=== PATIENT | female | born 1955 | race Hispanic/Latino ===

== ENCOUNTER 2021-01-15 19:52 | Observation (INO) | payer MEDICARE ==
[~2021-01-15] VITALS: Ht 157.5 cm; Wt 74.8 kg
[2021-01-15] MEDS ORDERED: METOCLOPRAMIDE HCL 10 MG/2ML VIAL IV ONE (20:45)
[2021-01-15] MEDS ORDERED: MAGNESIUM SULFATE 2GM/50ML 50 ML IV ONE (20:45)
[2021-01-15] MEDS ORDERED: ASPIRIN 81 MG CHEW TAB PO ONE (20:45)
[2021-01-15] MEDS ORDERED: DIPHENHYDRAMINE HCL INJ 50 MG/ML VIAL IV ONE (20:45)
[2021-01-15] MEDS ORDERED: SODIUM CHLORIDE 0.9% 1000ML 1,000 ML IV STA (20:45)
[2021-01-15 20:56] LABS: BASOPHILS % 0.4 % (0.0-1.0); EOSINOPHILS % 0.4 % (0.0-6.0); HEMATOCRIT 38.2 % (34.2-44.1); HEMOGLOBIN 13.1 g/dL (12.0-16.0); LYMPHOCYTES # (AUTO) 1.4 (1.0-3.2); LYMPHOCYTES % 15.4 % (18.0-39.1); MEAN CORPUSCULAR HEMOGLOBIN 28.6 pg (28-32); MEAN CORPUSCULAR HGB CONC 34.3 g/dL (31-35); MEAN CORPUSCULAR VOLUME 83.4 fL (81-99); MONOCYTES # (AUTO) 0.5 (0.2-0.8); MONOCYTES % 5.6 % (4.4-11.3); NEUTROPHILS # (AUTO) 7.2 (2.1-6.9); NEUTROPHILS % 77.9 % (38.7-80.0); PLATELET COUNT 245 x10e3/uL (140-360); RED BLOOD COUNT 4.58 x10e6/uL (3.6-5.1); RED CELL DISTRIBUTION WIDTH 11.9 % (11.7-14.4)
[2021-01-15 21:12] LABS: ALANINE AMINOTRANSFERASE 29 IU/L (0-55); ALBUMIN 4.5 g/dL (3.5-5.0); ALBUMIN/GLOBULIN RATIO 1.5 (0.8-2.0); ALKALINE PHOSPHATASE 62 IU/L (40-150); ANION GAP 17.1 mmol/L (8-16); BLOOD UREA NITROGEN 10 mg/dL (7-26); BUN/CREATININE RATIO 13 (6-25); CALCIUM 9.1 mg/dL (8.4-10.2); CARBON DIOXIDE 24 mmol/L (22-29); CHLORIDE 95 mmol/L (98-107); CREATINE KINASE 69 IU/L (29-168); CREATININE, SERUM 0.79 mg/dL (0.57-1.11); EST GLOMERULAR FILTRATION RATE > 60 ML/MIN (60-); GLUCOSE 220 mg/dL (74-118); POTASSIUM 4.1 mmol/L (3.5-5.1); SODIUM 132 mmol/L (136-145)
[2021-01-16] MEDS ORDERED: SODIUM CHLORIDE 0.9% 1000ML 1,000 ML IV SCH (00:15)
[2021-01-16] MEDS ORDERED: ASPIRIN 81 MG CHEW TAB PO ONE (00:15)
[2021-01-16] MEDS ORDERED: DIPHENHYDRAMINE HCL INJ 50 MG/ML VIAL ONE (00:27)
[2021-01-16] MEDS ORDERED: HYDRALAZINE HCL 20 MG/ML VIAL ONE (01:45)
[2021-01-16] MEDS: HYDRALAZINE HCL 20 MG/ML VIAL IV PRN ×3 (06:13→21:59)
[2021-01-16] MEDS ORDERED: MECLIZINE HCL 12.5 MG TAB PO SCH (15:30)
[2021-01-16 20:47] LABS: CREATINE KINASE MB 0.8 ng/mL (0-5.0)
[2021-01-16] MEDS ORDERED: ACETAMINOPHEN 325 MG TAB PO ONE (22:15)
[2021-01-16] MEDS ORDERED: CLONIDINE HCL 0.1 MG TAB PO PRN (22:45)
[2021-01-16] MEDS ORDERED: METOPROLOL TARTRATE INJ 1 MG/ML VIAL IV ONE (23:30)
[2021-01-17 00:04] VITALS: BP 147/66
[2021-01-17 00:30] VITALS: BP 147/66
[2021-01-17] MEDS ORDERED: GLIPIZIDE-METF1 EAC2 PO (01:03)
[2021-01-17] MEDS ORDERED: PRAVACHOL40 MG PO (01:03)
[2021-01-17] MEDS ORDERED: LANTUS 3ML100 UNITS/ SC (01:03)
[2021-01-17] MEDS ORDERED: LISINOPRIL40 MG PO (01:03)
[2021-01-17] MEDS ORDERED: GABAPENTIN100 MG PO (01:03)
[2021-01-17] MEDS ORDERED: LEVOTHYROXINE75 MCG PO (01:03)
[2021-01-17] MEDS ORDERED: PANTOPRAZOLE SO20 MG PO (01:03)
[2021-01-17] MEDS: LOSARTAN POTASSIUM 25 MG TAB PO SCH ×2 (01:42→09:00)
[2021-01-17] MEDS: METOPROLOL TARTRATE 50 MG TAB PO SCH ×2 (01:43→09:00)
[2021-01-17 04:00] VITALS: BP 118/66
[2021-01-17 06:51] LABS: BASOPHILS % 0.5 % (0.0-1.0); EOSINOPHILS # (AUTO) 0.1 (0.0-0.4); EOSINOPHILS % 1.5 % (0.0-6.0); HEMATOCRIT 35.7 % (34.2-44.1); HEMOGLOBIN 12.2 g/dL (12.0-16.0); LYMPHOCYTES # (AUTO) 2.2 (1.0-3.2); LYMPHOCYTES % 29.1 % (18.0-39.1); MEAN CORPUSCULAR HEMOGLOBIN 28.8 pg (28-32); MEAN CORPUSCULAR HGB CONC 34.2 g/dL (31-35); MEAN CORPUSCULAR VOLUME 84.4 fL (81-99); MONOCYTES # (AUTO) 0.6 (0.2-0.8); MONOCYTES % 8.1 % (4.4-11.3); NEUTROPHILS # (AUTO) 4.5 (2.1-6.9); NEUTROPHILS % 60.5 % (38.7-80.0); PLATELET COUNT 231 x10e3/uL (140-360); RED BLOOD COUNT 4.23 x10e6/uL (3.6-5.1); RED CELL DISTRIBUTION WIDTH 12.2 % (11.7-14.4)
[2021-01-17 07:17] LABS: ALANINE AMINOTRANSFERASE 21 IU/L (0-55); ALBUMIN 3.7 g/dL (3.5-5.0); ALBUMIN/GLOBULIN RATIO 1.4 (0.8-2.0); ALKALINE PHOSPHATASE 51 IU/L (40-150); ANION GAP 14.2 mmol/L (8-16); BLOOD UREA NITROGEN 10 mg/dL (7-26); BUN/CREATININE RATIO 12 (6-25); CALCIUM 8.8 mg/dL (8.4-10.2); CARBON DIOXIDE 27 mmol/L (22-29); CHLORIDE 103 mmol/L (98-107); CREATININE, SERUM 0.82 mg/dL (0.57-1.11); EST GLOMERULAR FILTRATION RATE > 60 ML/MIN (60-); GLUCOSE 125 mg/dL (74-118); POTASSIUM 4.2 mmol/L (3.5-5.1); SODIUM 140 mmol/L (136-145)
[2021-01-17] MEDS: INSULIN LISPRO 100 UNIT/1 ML 3ML VIAL SQ SCH ×2 (07:30→11:30)
[2021-01-17 08:00] VITALS: BP 134/69
[2021-01-17 08:07] VITALS: BP 134/69
[2021-01-17 12:02] VITALS: BP 145/82
[2021-01-17] MEDS ORDERED: ACETAMINOPHEN 325 MG TAB PO ONE (13:30)
== END 2021-01-17 14:37 | disposition home or self-care (01) ==
LOC: ER 20:45 → ERHOLD 01-16 00:22 → MED/SURG3 01-17 00:02
PROVIDERS: ADMIT Internal Medicine; ATTEND Internal Medicine
DX: H81.10 Benign paroxysmal vertigo, unspecified ear (principal); I10 Essential (primary) hypertension; E03.9 Hypothyroidism, unspecified; E78.5 Hyperlipidemia, unspecified; Z20.822 Contact with and (suspected) exposure to COVID-19; E11.9 Type 2 diabetes mellitus without complications
CPT/HCPCS: 36415 ×3; 70450; 70551; 80053 ×2; 82550 ×2; 82553 ×2; 82948 ×2; 84484 ×2; 85025 ×2; 99284; G0378 ×2; J0360; J1200; J3475; J7030 ×2; U0002